=== PATIENT | male | born 1950 | race Caucasian/White ===

== ENCOUNTER 2016-10-11 08:26 | Day surgery (SDC) | payer MEDICARE ==
[~2016-10-11] VITALS: Ht 180.3 cm; Wt 92.2 kg
== END 2016-10-11 11:05 | disposition home or self-care (01) ==
LOC: RAD.S 08:26 → EDSTATUS 10:00 → RAD.S 11:05
PROC: 07BD3ZX Excision of Aortic Lymphatic, Percutaneous Approach, Diagnostic (ICD-10-PCS; principal; 2016-10-11)
DX: C77.2 Secondary and unspecified malignant neoplasm of intra-abdominal lymph nodes (principal); C34.90 Malignant neoplasm of unspecified part of unspecified bronchus or lung; C67.9 Malignant neoplasm of bladder, unspecified; Z88.8 Allergy status to other drugs, medicaments and biological substances